=== PATIENT | female | born 1965 | race Caucasian/White ===

== ENCOUNTER 2016-06-23 03:07 | Emergency (ER) | payer OTHER, BC ==
[2016-06-23 05:10] LABS: ABSOLUTE LYMPHOCYTES (AUTO) 1.2 10^3/uL (0.5-4.7); ABSOLUTE MONOCYTES (AUTO) 0.3 10^3/uL (0.1-1.4); ABSOLUTE NEUT (AUTO) 2.6 10^3/uL (1.7-8.2); BASOPHILS % (AUTO) 1.2 % (0-2); EOSINOPHILS % (AUTO) 0.6 % (0-6); HEMATOCRIT 44.9 % (36.0-47.0); HEMOGLOBIN 15.4 g/dL (12.0-15.5); HGB HCT DIFFERENCE 1.3; LYMPHOCYTES % (AUTO) 28.5 % (13-45); MEAN CORPUSCULAR HEMOGLOBIN 30.3 pg (27.0-33.4); MEAN CORPUSCULAR HGB CONC 34.2 g/dL (32.0-36.0); MEAN CORPUSCULAR VOLUME 89 fl (80-97); MONOCYTES % (AUTO) 8.3 % (3-13); RED BLOOD COUNT 5.08 10^6/uL (3.72-5.28); RED CELL DISTRIBUTION WIDTH 12.6 % (11.5-14.0); SEGMENTED NEUTROPHILS % (AUTO) 61.4 % (42-78); WHITE BLOOD COUNT 4.2 10^3/uL (4.0-10.5)
[2016-06-23 05:17] LABS: ALANINE AMINOTRANSFERASE 37 U/L (9-52); ALBUMIN 4.5 g/dL (3.5-5.0); ALKALINE PHOSPHATASE 80 U/L (38-126); ANION GAP 15 (5-19); ASPARTATE AMINO TRANSFERASE 39 U/L (14-36); BILIRUBIN,DIRECT 0.3 mg/dL (0.0-0.4); BLOOD UREA NITROGEN 16 mg/dL (7-20); CALCIUM 9.8 mg/dL (8.4-10.2); CARBON DIOXIDE 25 mmol/L (22-30); CHLORIDE 104 mmol/L (98-107); CREATINE KINASE 61 U/L (30-135); CREATININE RESULT 0.73 mg/dL (0.52-1.25); GLUCOSE 107 mg/dL (75-110); POTASSIUM 4.2 mmol/L (3.6-5.0); SODIUM 144.2 mmol/L (137-145); TOTAL PROTEIN 7.5 g/dL (6.3-8.2)
[2016-06-23 05:27] LABS: CREATINE KINASE MB 0.49 ng/mL (<4.55)
[2016-06-23 05:28] LABS: TROPONIN I < 0.012 ng/mL
[2016-06-23 05:41] LABS: APPEARANCE,URINE CLEAR; BILIRUBIN,URINE NEGATIVE (NEGATIVE); GLUCOSE, URINE NEGATIVE (NEGATIVE); KETONES,URINE NEGATIVE (NEGATIVE); LEUKOCYTE ESTERASE,URINE NEGATIVE (NEGATIVE); NITRITE,URINE NEGATIVE (NEGATIVE); PROTEIN,URINE NEGATIVE (NEGATIVE); URINE SPECIFIC GRAVITY 1.002; UROBILINOGEN,URINE NEGATIVE mg/dL (<2.0)
[2016-06-23] MEDS ORDERED: MECLIZINE HCL 25 MG TABLET PO ONE (08:57)
[2016-06-23] MEDS ORDERED: NORMAL SALINE 1000 ML 1,000 ML IV ONE (08:57)
[2016-06-23] MEDS ORDERED: LIDOCAINE 2% VISCOUS SOLN 20 ML UDCUP PO ONE (10:23)
[2016-06-23] MEDS ORDERED: MAG HYDROX/AL HYDROX/SIMETH SUSP 30 ML UDCUP PO ONE (10:23)
--- NOTE | 2016-06-23 11:27 | ER Document Report ---
ED Dizziness/Weakness - General Chief Complaint: Dizziness Stated Complaint: DIZZINESS Mode of Arrival: Ambulatory Information source: Patient Notes: Patient presents complaining of dizziness for the past 5 days. Patient reports mild cough that occasionally productive for the past 3 days. Patient states 5 days ago that she was at home felt dizzy and then had a syncopal episode. Patient was then seen at an urgent care and diagnosed with a sinus infection and placed on Augmentin. Patient saw her primary doctor 3 days ago and was given a prescription for meclizine and Flonase. Patient states that she does not like to take medicine and has not been using the meclizine or the Flonase to help. Patient additionally reports feeling jittery after taking Sudafed. Patient complains of sinus congestion. Patient denies any fever. Patient denies any nausea or vomiting. Patient denies any chest pain. 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 TRAVEL OUTSIDE OF THE [place] IN LAST 30 DAYS: No - HPI Patient complains to provider of: Dizziness - 5 days, Syncope - Last week Onset: Other - 5 days Onset/Duration: Gradual Quality of pain: No pain Pain Level: Denies Context: Vertigo Associated symptoms: Dizzy, Fainted - Last week. 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 [employer] Lives with: Spouse/Significant other Family History: Reviewed & Not Pertinent Patient has suicidal ideation: No Patient has homicidal ideation: No EENT Medical History: Reports: Other - Tinnitis Neurological Medical History: Reports: Hx Cerebrovascular Accident - After childbirth Renal/ Medical History: Denies: Hx Peritoneal Dialysis Surgical Hx: Negative - Immunizations Hx Diphtheria, Pertussis, Tetanus Vaccination: No Review of Systems - Review of Systems Constitutional: Recent illness - Recently treated for sinus infection EENT: Ear pain - Ear fullness, Nose congestion Cardiovascular: Syncope - Last week, Dizziness. denies: Chest pain Respiratory: Cough. denies: Short of breath Gastrointestinal: Abdominal pain - Occasional epigastric pain that seems to be better this time. denies: Nausea, Vomiting Genitourinary: No symptoms reported. denies: Dysuria, Flank pain Female Genitourinary: No symptoms reported Musculoskeletal: No symptoms reported. denies: Back pain Skin: No symptoms reported Hematologic/Lymphatic: No symptoms reported Neurological/Psychological: No symptoms reported. denies: Headaches Physical Exam - Vital signs Vitals: Temp Pulse Resp BP Pulse Ox 97.9 F 46 L 14 132/89 H 100 06/23/16 03:16 06/23/16 03:16 06/23/16 03:16 06/23/16 03:16 06/23/16 03:16 - General General appearance: Appears well, Alert In distress: None - HEENT Head: Normocephalic, Atraumatic Eyes: Normal Conjunctiva: Normal Pupils: PERRL Ears: Normal External canal: Normal Tympanic membrane: Serous effusion - Bilateral, right worse than left Sinus: Normal Nasal: Swelling, Clear rhinorrhea Mouth/Lips: Normal Mucous membranes: Normal Pharynx: Normal. No: Erythema, Exudate, Peritonsillar abscess, Tonsillar hypertrophy Neck: Normal, Supple. No: Lymphadenopathy, Meningismus - Respiratory Respiratory status: No respiratory distress Chest status: Nontender Breath sounds: Normal. No: Rales, Rhonchi, Stridor, Wheezing Chest palpation: Normal - Cardiovascular Rhythm: Bradycardia Heart sounds: S1 appreciated, S2 appreciated Murmur: No - Abdominal Inspection: Normal Distension: No distension Tenderness: Tender - Mild epigastric tenderness Organomegaly: No organomegaly - Back Back: Normal, Nontender. No: CVA tenderness - Extremities General upper extremity: Normal inspection, Normal strength General lower extremity: Normal inspection, Normal strength - Neurological Neuro grossly intact: Yes Cognition: Normal [place] Coma Scale Eye Opening: Spontaneous [place] Coma Scale Verbal: Oriented [place] Coma Scale Motor: Obeys Commands [place] Coma Scale Total: 15 - Psychological Associated symptoms: Normal affect, Normal mood Course - Re-evaluation Re-evalutation: 06/23/16 11:23 Vital signs stable. Patient continues with bradycardia on cushion maker. Patient denies any chest pain or abdominal tenderness at this time. Patient states that dizzy symptoms have improved after the medication. Consulted with Dr. Richards regarding patient presentation. Patient's diagnostic tests an EKG reviewed. Agrees with discharge plan of care. - Vital Signs Vital signs: Temp Pulse Resp BP Pulse Ox 97.7 F 46 L 13 121/71 98 06/23/16 07:52 06/23/16 09:52 06/23/16 11:01 06/23/16 11:01 06/23/16 11:01 - Laboratory Result Diagrams: 06/23/16 04:55 06/23/16 04:55 Laboratory results interpreted by me: 06/23/16 06/23/16 04:55 04:55 Plt Count 135 L AST 39 H 06/23/16 11:48 Labs- Entire Visit 06/23/16 06/23/16 06/23/16 04:55 04:55 04:55 WBC 4.2 RBC 5.08 Hgb 15.4 Hct 44.9 MCV 89 MCH 30.3 MCHC 34.2 RDW 12.6 Plt Count 135 L Seg Neutrophils % 61.4 Lymphocytes % 28.5 Monocytes % 8.3 Eosinophils % 0.6 Basophils % 1.2 Absolute Neutrophils 2.6 Absolute Lymphocytes 1.2 Absolute Monocytes 0.3 Absolute Eosinophils 0.0 Absolute Basophils 0.0 Sodium 144.2 Potassium 4.2 Chloride 104 Carbon Dioxide 25 Anion Gap 15 BUN 16 Creatinine 0.73 Est GFR ( Amer) > 60 Est GFR (Non-Af Amer) > 60 Glucose 107 Calcium 9.8 Total Bilirubin 1.0 Direct Bilirubin 0.3 Indirect Bilirubin Not Reportable Neonat Total Bilirubin Not Reportable AST 39 H ALT 37 Alkaline Phosphatase 80 Creatine Kinase 61 CK-MB (CK-2) 0.49 Troponin I < 0.012 Total Protein 7.5 Albumin 4.5 Lipase Urine Color Urine Appearance Urine pH Ur Specific [place] Urine Protein Urine Glucose (UA) Urine Ketones Urine Blood Urine Nitrite Urine Bilirubin Urine Urobilinogen Ur Leukocyte Esterase Urine WBC (Auto) Urine Mucus (Auto) Urine Ascorbic Acid 06/23/16 06/23/16 06/23/16 04:55 05:26 09:00 WBC RBC Hgb Hct MCV MCH MCHC RDW Plt Count Seg Neutrophils % Lymphocytes % Monocytes % Eosinophils % Basophils % Absolute Neutrophils Absolute Lymphocytes Absolute Monocytes Absolute Eosinophils Absolute Basophils Sodium Potassium Chloride Carbon Dioxide Anion Gap BUN Creatinine Est GFR ( Amer) Est GFR (Non-Af Amer) Glucose Calcium Total Bilirubin Direct Bilirubin Indirect Bilirubin Neonat Total Bilirubin AST ALT Alkaline Phosphatase Creatine Kinase CK-MB (CK-2) Troponin I < 0.012 Total Protein Albumin Lipase 94.4 Urine Color STRAW Urine Appearance CLEAR Urine pH 6.0 Ur Specific [place] 1.002 Urine Protein NEGATIVE Urine Glucose (UA) NEGATIVE Urine Ketones NEGATIVE Urine Blood NEGATIVE Urine Nitrite NEGATIVE Urine Bilirubin NEGATIVE Urine Urobilinogen NEGATIVE Ur Leukocyte Esterase NEGATIVE Urine WBC (Auto) 0 Urine Mucus (Auto) RARE Urine Ascorbic Acid NEGATIVE - EKG Interpretation by Me Rate: Bradycardia When compared to previous EKG there are: No significant change Discharge - Discharge Clinical Impression: Dizziness Serous otitis media Qualifiers: Laterality: bilateral Chronicity: acute Recurrence: not specified as recurrent Qualified Code(s): H65.03 - Acute serous otitis media, bilateral Condition: Stable Disposition: HOME, SELF-CARE Instructions: Dizziness ([facility]), Meclizine ([facility]), Vertigo ([facility]) Additional Instructions: Return immediately for any new or worsening symptoms Followup with your primary care provider, call tomorrow to make a followup appointment Follow up with a rehab/pre vocational counselor for a recheck, call tomorrow for an appointment time Take the meclizine that you were prescribed as well as the Flonase to help with your symptoms Referrals: VELVET TELLES MD [Primary Care Provider] - Follow up tomorrow CYNTHIA ABERNATHY MD [ACTIVE STAFF] - Follow up tomorrow
[2016-06-23 11:32] VITALS: BP 121/71
--- NOTE | 2016-06-23 21:12 | EKG REPORT ---
SEVERITY:- ABNORMAL ECG - SINUS BRADYCARDIA LEFT ATRIAL ABNORMALITY PROBABLE LEFT VENTRICULAR HYPERTROPHY CONSIDER ANTERIOR INFARCT ABNORMAL T, CONSIDER ISCHEMIA, INFERIOR LEADS : Confirmed by: Anabelle Villavicencio MD 23-Jun-2016 21:11:49
== END 2016-06-23 11:48 | disposition home or self-care (01) ==
LOC: ER 03:07
DX: R42 Dizziness and giddiness (principal); H65.03 Acute serous otitis media, bilateral; R05 Cough; R09.81 Nasal congestion; Z79.899 Other long term (current) drug therapy
CPT/HCPCS: 93005; 99284; 96360; 36415; 82553; 82550; 83690; 85025; 80053; 81001; 84484; 93010; J7030